=== PATIENT | female | born 1995 | race Caucasian/White ===

== ENCOUNTER 2020-03-26 11:43 | Emergency (ER) | payer OTHER ==
[2020-03-26 12:12] LABS: Absolute Neutrophil Ct (ANC) 4.48 (1.4-6.9); BASOPHIL % 0.3 % (0.0-0.4); Basophil (Absolute #) 0.02 (0-0.4); Eosinophil % 1.3 % (0.00-5.0); Eosinophil (Absolute #) 0.09 (0-0.5); Hemoglobin 12.3 gm/dl (12.0-16.0); Lymphocyte (Absolute #) 1.87 (1.0-4.6); Lymphocytes % 27.4 % (24.0-44.0); Mean Cell Volume 81.5 fl (78-100); Mean Corpuscular Hemoglobin 27.1 pg (26-32); Mean Corpuscular Hgb Concent. 33.2 g/dl (32-36); Mean Platelet Volume 10.2 fl (7.5-11.0); Monocyte (Absolute #) 0.36 (0.0-1.3); Monocytes % 5.3 % (0.0-12.0); Neutrophil % 65.7 % (36.0-66.0); Platelet Count 258 K/mm3 (150-450); Red Blood Count 4.54 M/mm3 (4.1-5.4); Red Cell Distribution Width 13.8 % (11.5-14.0); White Blood Count 6.8 K/mm3 (4.0-10.5)
[2020-03-26 12:16] LABS: Appearance CLEAR (CLEAR); Bilirubin NEGATIVE (NEGATIVE); Blood NEGATIVE Ery/ul (0-5); Glucose NEGATIVE (NEGATIVE); Ketones NEGATIVE (NEGATIVE); Leukocyte Esterase NEGATIVE (NEGATIVE); Mucus SLIGHT /HPF (NEGATIVE); Nitrite NEGATIVE (NEGATIVE); Protein,Urine Dip NEGATIVE (Negative); Specific Gravity 1.019 (1.005-1.025); Urobilinogen NEGATIVE mg/dL (0-1); WBC 0-2 /HPF (0-5)
[2020-03-26 12:25] LABS: ALBUMIN 4.2 g/dL (3.5-5.0); ALKALINE PHOSPHATASE 68 U/L (38-126); AMYLASE 46 U/L (30-110); ANION GAP 9.9 MEQ/L (5-15); BLOOD UREA NITROGEN 8 mg/dL (7-17); CHLORIDE 107 mmol/L (98-107); Calcium 8.9 mg/dL (8.4-10.2); Carbon Dioxide 24 mmol/L (22-30); Creatinine 1 0.61 mg/dL (0.52-1.04); EST GLOMERULAR FILTRATION RATE > 60.0 ML/MIN; Glucose 96 mg/dL (74-106); LIPASE 43 U/L (23-300); Potassium 3.5 mmol/L (3.5-5.1); SGOT/AST 19 U/L (14-36); SGPT/ALT 19 U/L (0-35); SODIUM 137 mmol/L (137-145); Total Protein 7.2 g/dL (6.3-8.2)
--- NOTE | 2020-03-26 12:46 | XRAY ---
Indication: Left lower quadrant pain. Two-dimensional transabdominal early OB ultrasound performed. Comparison: None for this . Uterus anteverted with intrauterine cyst/sac in the fundus, possibly a gestational sac. If so, mean sac diameter 0.50 cm corresponding to 5 weeks 0 days. No pole/heart tones. Left ovary demonstrates a 1.8 cm cyst. Right ovary unremarkable. No suspicious adnexal mass or free fluid. Impression: Tiny fundal intrauterine cyst/sac, possible gestational sac in the right clinical setting measuring 5 weeks 0 days. No pole/heart tones at this time. Correlate with serial beta hCG and follow-up sonogram.
[2020-03-26 13:02] VITALS: BP 132/83; PULSE 68; O2SAT 97
--- NOTE | 2020-03-26 13:10 | ERPHSYRPT ---
- History of Present Illness Time Seen by Provider: 03/26/20 11:55 Historian: patient Exam Limitations: no limitations Patient Subjective Stated Complaint: "Lower pelvic cramping with nausea and vomiting x 3 days." Triage Nursing Assessment: Pt A & Ox3. Skin PWD. Answers questions appropriately. GCS 15. No vaginal bleeding or discharge reported/ noted. No nausea/vomiting noted at this time. Lower abdomen/pelvis tender upon palpation. Bowel sounds present in all 4 quadrants. No diarrhea. A0. Physician History: Patient is 5 weeks . 3 para 2. Patient has not seen NURSE CLINICIAN this time. Came to the ER for lower abdominal cramping pain with nausea vomiting. No other symptoms. Timing/Duration: day(s) (2) Quality: cramping Abdominal Pain Onset Location: suprapubic Pain Radiation: no radiation Severity of Pain-Max: mild Severity of Pain-Current: mild Modifying Factors: Improves With: nothing Associated Symptoms: nausea, vomiting Previous symptoms: no prior history Allergies/Adverse Reactions: No Known Drug Allergies Allergy (Unverified 03/26/20 12:07) Hx Tetanus, Diphtheria Vaccination/Date Given: No Hx Influenza Vaccination/Date Given: No Hx Pneumococcal Vaccination/Date Given: No Travel Risk - International Travel Have you traveled outside of the country in past 3 weeks: No (N) If Yes, where;: N - Coronavirus Screening Close contact with a COVID-19 positive Pt in past 14-21 Days: No - Review of Systems Constitutional: No Fever, No Chills Eyes: No Symptoms Ears, Nose, & Throat: No Symptoms Respiratory: No Cough, No Dyspnea Cardiac: No Chest Pain, No Edema, No Syncope Abdominal/Gastrointestinal: Abdominal Pain, Nausea, Vomiting, No Diarrhea Genitourinary Symptoms: No Dysuria Musculoskeletal: No Back Pain, No Neck Pain Skin: No Rash Neurological: No Dizziness, No Focal Weakness, No Sensory Changes Psychological: No Symptoms Endocrine: No Symptoms All Other Systems: Reviewed and Negative - Past Medical History Pertinent Past Medical History: No Neurological History: No Pertinent History ENT History: No Pertinent History Cardiac History: No Pertinent History Respiratory History: No Pertinent History Endocrine Medical History: No Pertinent History Musculoskeletal History: No Pertinent History GI Medical History: No Pertinent History History: No Pertinent History Psycho-Social History: No Pertinent History Female Reproductive Disorders: No Pertinent History - Past Surgical History Past Surgical History: Yes Neuro Surgical History: No Pertinent History Cardiac: No Pertinent History Respiratory: No Pertinent History Gastrointestinal: Hernia Repair Genitourinary: No Pertinent History Musculoskeletal: No Pertinent History Female Surgical History: Section - Social History Smoking Status: Current every day smoker How long have you smoked: 8 years Drug Use: none Patient Lives Alone: No - Female History Hx Last Menstrual Period: 02/21/2020 Hx Now: Yes - Nursing Vital Signs Nursing Vital Signs: Initial Vital Signs Temperature 98.4 F 03/26/20 11:47 Pulse Rate 94 H 03/26/20 11:47 Respiratory Rate 16 03/26/20 11:47 Blood Pressure 152/79 03/26/20 11:47 O2 Sat by Pulse Oximetry 98 03/26/20 11:47 Pain Scale Pain Intensity 0 - Physical Exam General Appearance: no apparent distress, alert, other (And examined in presence of the female nurse) Eye Exam: PERRL/EOMI, eyes nml inspection Ears, Nose, Throat Exam: normal ENT inspection, pharynx normal, moist mucous membranes Neck Exam: normal inspection, non-tender, supple, full range of motion Respiratory Exam: normal breath sounds, lungs clear, No respiratory distress Cardiovascular Exam: regular rate/rhythm, normal heart sounds Gastrointestinal/Abdomen Exam: soft, No tenderness, No mass Back Exam: normal inspection, normal range of motion, No CVA tenderness, No v ertebral tenderness Extremity Exam: normal inspection, normal range of motion, pelvis stable Neurologic Exam: alert, oriented x 3, cooperative, normal mood/affect, nml cerebellar function, sensation nml, No motor deficits Skin Exam: normal color, warm, dry SpO2: 97 - Course Nursing assessment & vital signs reviewed: Yes - Radiology Ultrasound Exam OB Ultrasound: Other (Tiny fundal intrauterine cyst/sac, possible gestational sac in the) Ordered Tests: Active Orders 24 hr Category Date Time Status IV Insertion STAT Care 03/26/20 11:54 Active OB <14 WKS 1ST GESTATION [US] Stat Exams 03/26/20 12:25 Completed AMYLASE Stat Lab 03/26/20 12:00 Completed CBC W DIFF Stat Lab 03/26/20 12:00 Completed CMP Stat Lab 03/26/20 12:00 Completed HCG, Quantitative (Inhouse) Stat Lab 03/26/20 11:57 Completed HCG,QUALITATIVE URINE Stat Lab 03/26/20 12:00 Completed LIPASE Stat Lab 03/26/20 12:00 Completed UA W/RFX UR CULTURE Stat Lab 03/26/20 12:00 Completed Lab/Rad Data: Laboratory Result Diagrams 03/26/20 12:00 03/26/20 12:00 Laboratory Results 03/26/20 03/26/20 03/26/20 Range/Units 12:00 12:00 12:00 WBC 6.8 (4.0-10.5) K/mm3 RBC 4.54 (4.1-5.4) M/mm3 Hgb 12.3 (12.0-16.0) gm/dl Hct 37.0 (35-47) % MCV 81.5 (78-100) fl MCH 27.1 (26-32) pg MCHC 33.2 (32-36) g/dl RDW 13.8 (11.5-14.0) % Plt Count 258 (150-450) K/mm3 MPV 10.2 (7.5-11.0) fl Gran % 65.7 (36.0-66.0) % Eos # (Auto) 0.09 (0-0.5) Absolute Lymphs (auto) 1.87 (1.0-4.6) Absolute Monos (auto) 0.36 (0.0-1.3) Lymphocytes % 27.4 (24.0-44.0) % Monocytes % 5.3 (0.0-12.0) % Eosinophils % 1.3 (0.00-5.0) % Basophils % 0.3 (0.0-0.4) % Absolute Granulocytes 4.48 (1.4-6.9) Basophils # 0.02 (0-0.4) Sodium 137 (137-145) mmol/L Potassium 3.5 (3.5-5.1) mmol/L Chloride 107 (98-107) mmol/L Carbon Dioxide 24 (22-30) mmol/L Anion Gap 9.9 (5-15) MEQ/L BUN 8 (7-17) mg/dL Creatinine 0.61 (0.52-1.04) mg/dL Estimated GFR > 60.0 ML/MIN Glucose 96 (74-106) mg/dL Calcium 8.9 (8.4-10.2) mg/dL Total Bilirubin 0.50 (0.2-1.3) mg/dL AST 19 (14-36) U/L ALT 19 (0-35) U/L Alkaline Phosphatase 68 (38-126) U/L Serum Total Protein 7.2 (6.3-8.2) g/dL Albumin 4.2 (3.5-5.0) g/dL Amylase 46 (30-110) U/L Lipase 43 (23-300) U/L Beta HCG, Quant mIU/ml Urine Color (YELLOW) Urine Appearance (CLEAR) Urine pH (5-6) Ur Specific [place] (1.005-1.025) Urine Protein (Negative) Urine Ketones (NEGATIVE) Urine Blood (0-5) Rob/ul Urine Nitrite (NEGATIVE) Urine Bilirubin (NEGATIVE) Urine Urobilinogen (0-1) mg/dL Ur Leukocyte Esterase (NEGATIVE) Urine WBC (Auto) (0-5) /HPF Urine RBC (Auto) (0-2) /HPF U Epithel Cells (Auto) (FEW) /HPF Urine Bacteria (Auto) (NEGATIVE) /HPF Urine Mucus (Auto) (NEGATIVE) /HPF Urine Culture Reflexed (NO) Urine Glucose (NEGATIVE) mg/dL Urine HCG, Qual POSITIVE (Negative) 03/26/20 03/26/20 Range/Units 12:00 11:57 WBC (4.0-10.5) K/mm3 RBC (4.1-5.4) M/mm3 Hgb (12.0-16.0) gm/dl Hct (35-47) % MCV (78-100) fl MCH (26-32) pg MCHC (32-36) g/dl RDW (11.5-14.0) % Plt Count (150-450) K/mm3 MPV (7.5-11.0) fl Gran % (36.0-66.0) % Eos # (Auto) (0-0.5) Absolute Lymphs (auto) (1.0-4.6) Absolute Monos (auto) (0.0-1.3) Lymphocytes % (24.0-44.0) % Monocytes % (0.0-12.0) % Eosinophils % (0.00-5.0) % Basophils % (0.0-0.4) % Absolute Granulocytes (1.4-6.9) Basophils # (0-0.4) Sodium (137-145) mmol/L Potassium (3.5-5.1) mmol/L Chloride (98-107) mmol/L Carbon Dioxide (22-30) mmol/L Anion Gap (5-15) MEQ/L BUN (7-17) mg/dL Creatinine (0.52-1.04) mg/dL Estimated GFR ML/MIN Glucose (74-106) mg/dL Calcium (8.4-10.2) mg/dL Total Bilirubin (0.2-1.3) mg/dL AST (14-36) U/L ALT (0-35) U/L Alkaline Phosphatase (38-126) U/L Serum Total Protein (6.3-8.2) g/dL Albumin (3.5-5.0) g/dL Amylase (30-110) U/L Lipase (23-300) U/L Beta HCG, Quant 3002.8 mIU/ml Urine Color YELLOW (YELLOW) Urine Appearance CLEAR (CLEAR) Urine pH 5.0 (5-6) Ur Specific [place] 1.019 (1.005-1.025) Urine Protein NEGATIVE (Negative) Urine Ketones NEGATIVE (NEGATIVE) Urine Blood NEGATIVE (0-5) Rob/ul Urine Nitrite NEGATIVE (NEGATIVE) Urine Bilirubin NEGATIVE (NEGATIVE) Urine Urobilinogen NEGATIVE (0-1) mg/dL Ur Leukocyte Esterase NEGATIVE (NEGATIVE) Urine WBC (Auto) 0-2 (0-5) /HPF Urine RBC (Auto) NONE (0-2) /HPF U Epithel Cells (Auto) NONE (FEW) /HPF Urine Bacteria (Auto) NONE (NEGATIVE) /HPF Urine Mucus (Auto) SLIGHT (NEGATIVE) /HPF Urine Culture Reflexed NO (NO) Urine Glucose NEGATIVE (NEGATIVE) mg/dL Urine HCG, Qual (Negative) - Progress Progress: improved Progress Note: 03/26/20 13:07 Nonsurgical abdomen. Patient is afebrile, nontoxic. Work-up is negative. Advised patient to see NURSE CLINICIAN as soon as possible. Also told patient to return to the ER in case of any emergency or new symptoms or worsening symptoms Counseled pt/family regarding: lab results, diagnosis, need for follow-up, vianney barton esults - Departure Departure Disposition: Home Clinical Impression: Nausea & vomiting Pelvic pain affecting Qualifiers: Trimester: first trimester Qualified Code(s): O26.891 - Other specified related conditions, first trimester; R10.2 - Pelvic and perineal pain Condition: Stable Critical Care Time: No Referrals: MARISSA MUÑOZ NP [Primary Care Provider] - Follow Up with PCP (NURSE CLINICIAN as soon as possible) Prescriptions: Ondansetron ODT 4 MG [Zofran Odt 4 mg] 4 mg PO Q6H PRN PRN #10 tab.rapdis PRN Reason: Vomiting
== END 2020-03-26 13:13 | disposition home or self-care (01) ==
LOC: ED 11:43
DX: O21.9 Vomiting of pregnancy, unspecified (principal); Z3A.01 Less than 8 weeks gestation of pregnancy; R10.9 Unspecified abdominal pain
CPT/HCPCS: 36000; 36415; 76801; 80053; 81001; 82150; 83690; 84702; 84703; 85025; 99284

== ENCOUNTER 2020-04-04 19:16 | Emergency (ER) | payer OTHER ==
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
[2020-04-04] MEDS ORDERED: TORAdol 30 mg Injection IM ONE (19:45)
[2020-04-04] MEDS ORDERED: TORAdol 30 mg Injection ONE (19:48)
[2020-04-04 19:57] VITALS: BP 132/84; PULSE 84; O2SAT 98
== END 2020-04-04 19:54 | disposition home or self-care (01) ==
LOC: ED 19:16
DX: M54.5 Low back pain (principal); V89.2XXA Person injured in unspecified motor-vehicle accident, traffic, initial encounter; Z34.01 Encounter for supervision of normal first pregnancy, first trimester
CPT/HCPCS: 96372; 99284; J1885